=== PATIENT | female | born 1975 | race Hispanic/Latino ===

== ENCOUNTER 2023-01-26 13:02 | Outpatient (RCR) | payer OTHER | END 2023-02-03 | LOC: PT 13:02 | PROVIDERS: ATTEND Specialist | DX: M70.62 Trochanteric bursitis, left hip (principal) ==

== ENCOUNTER 2023-02-04 13:58 | Outpatient (RCR) | payer OTHER | END 2023-03-05 | LOC: PT 13:58 | PROVIDERS: ATTEND Specialist | DX: M25.552 Pain in left hip (principal) ==